=== PATIENT | male | born 1950 | race Caucasian/White ===

== ENCOUNTER 2021-01-19 15:46 | Emergency (ER) | payer MEDICARE | END 2021-01-19 17:10 | disposition home or self-care (01) | LOC: ER1 15:46 | DX: M54.41 Lumbago with sciatica, right side (principal); M54.42 Lumbago with sciatica, left side; M54.16 Radiculopathy, lumbar region; F17.210 Nicotine dependence, cigarettes, uncomplicated | CPT/HCPCS: 99283; J1885; J2360 ==

== ENCOUNTER → 2021-03-27 | Outpatient (CLI) | payer MEDICARE | LOC: RAD 10:27 | DX: M54.5 Low back pain (principal); M51.36 Other intervertebral disc degeneration, lumbar region; M41.9 Scoliosis, unspecified; M43.16 Spondylolisthesis, lumbar region; M48.061 Spinal stenosis, lumbar region without neurogenic claudication | CPT/HCPCS: 72110 ==

== ENCOUNTER 2021-06-16 16:39 | Emergency (ER) | payer MEDICARE ==
[2021-06-16 18:21] LABS: HEMOGLOBIN 14.1 gm/dl (14.0-17.5); RED BLOOD COUNT 4.56 M/UL (4.20-5.50); WHITE BLOOD COUNT 8.6 K/UL (4.5-11.0)
[2021-06-16] MEDS ORDERED: ASPIR-TRIN325 MG PO (21:32)
== END 2021-06-16 22:00 | disposition home or self-care (01) ==
LOC: ER1 16:39
PROVIDERS: Physician Assistant
DX: I73.9 Peripheral vascular disease, unspecified (principal); N18.9 Chronic kidney disease, unspecified; F17.210 Nicotine dependence, cigarettes, uncomplicated; Z79.82 Long term (current) use of aspirin; Z79.899 Other long term (current) drug therapy
CPT/HCPCS: 70450; 72125; 75635; 80053; 81001; 82550; 82553; 83874; 84484; 85025; 99284; Q9967

== ENCOUNTER 2021-09-23 11:15 | Emergency (ER) | payer MEDICARE | END 2021-09-23 12:05 | disposition home or self-care (01) | LOC: ER1 11:15 | DX: I10 Essential (primary) hypertension (principal); F17.200 Nicotine dependence, unspecified, uncomplicated | CPT/HCPCS: 99283 ==

== ENCOUNTER → 2021-09-23 | Outpatient (CLI) | payer MEDICARE ==
[~2021-09-23] MED LIST: ASPIR-TRIN325 MG PO
[2021-09-23 12:55] LABS: RED BLOOD COUNT 4.52 M/UL (4.20-5.50); WHITE BLOOD COUNT 8.5 K/UL (4.5-11.0)
== END ==
LOC: LAB 12:12
PROVIDERS: Family Medicine
DX: I10 Essential (primary) hypertension (principal)
CPT/HCPCS: 36415; 80053; 80061; 84443; 85027

== ENCOUNTER 2021-10-22 15:56 | Emergency (ER) | payer MEDICARE ==
[~2021-10-22] VITALS: Ht 170.2 cm; Wt 68.0 kg
[2021-10-22 16:31] LABS: HEMOGLOBIN 13.7 gm/dl (14.0-17.5); RED BLOOD COUNT 4.48 M/UL (4.20-5.50); WHITE BLOOD COUNT 13.2 K/UL (4.5-11.0)
[2021-10-23 10:24] LABS: CANDIDA ALBICANS Not Detected (Negative); CANDIDA KRUSEI Not Detected (Negative); CANDIDA TROPICALIS Not Detected (Negative); ESCHERICHIA COLI Not Detected (Negative); HAEMOPHILUS INFLUENZAE Not Detected (Negative); KLEBSIELLA OXYTOCA Not Detected (Negative); KLEBSIELLA PNEUMONIAE Not Detected (Negative); KPC-CARBAPENEM-RESISTANCE GENE Not Detected (Negative); PROTEUS Not Detected (Negative); PSEUDOMONAS AERUGINOSA Not Detected (Negative); SERRATIA MARCESANS Not Detected (Negative); STAPHYLOCOCCUS AUREUS Not Detected (Negative); STREP AGALACTIAE (GROUP B) Not Detected (Negative); STREP PYOGENES (GROUP A) Not Detected (Negative); STREPTOCOCCUS Not Detected (Negative); vanA/B (VANCOMYCIN RESIST GENE Not Detected (Negative)
[2021-10-23 11:53] LABS: STAPHYLOCOCCUS DETECTED (Negative)
[2021-10-23] MEDS ORDERED: AMLODIPINE BESY10 MG PO (12:12)
[2021-10-23] MEDS ORDERED: FLOMAX 0.4 MG0.4 MG PO (12:12)
[2021-10-23] MEDS ORDERED: CRESTOR10 MG PO (12:13)
[2021-10-23] MEDS ORDERED: ATENOLOL25 MG PO (12:13)
[2021-10-23] MEDS ORDERED: ASPIRIN EC81 MG PO (12:14)
== END 2021-10-23 00:15 | disposition short-term general hospital (02) ==
LOC: ER1 15:56
PROVIDERS: Nurse Practitioner; Physician Assistant Medical
DX: K57.92 Diverticulitis of intestine, part unspecified, without perforation or abscess without bleeding (principal); D72.829 Elevated white blood cell count, unspecified; Z20.822 Contact with and (suspected) exposure to COVID-19; I12.9 Hypertensive chronic kidney disease with stage 1 through stage 4 chronic kidney disease, or unspecified chronic kidney disease; N18.30 Chronic kidney disease, stage 3 unspecified; E78.5 Hyperlipidemia, unspecified; I73.9 Peripheral vascular disease, unspecified; Z86.73 Personal history of transient ischemic attack (TIA), and cerebral infarction without residual deficits; F17.200 Nicotine dependence, unspecified, uncomplicated; Z79.82 Long term (current) use of aspirin; Z86.59 Personal history of other mental and behavioral disorders
CPT/HCPCS: 0240U; 36600; 70450; 71045; 80053; 81001; 82140; 82550; 82553; 82803; 83605; 84484; 85025; 87040; 87077; 87086; 87150; 93005; 96374; 96375; 97162; 97165; 97530; 99285; J2405; J2543; J2550; J3370; J7070; Q9967

== ENCOUNTER → 2022-01-13 | Outpatient (CLI) | payer MEDICARE ==
[~2022-01-13] MED LIST changes: +AMLODIPINE BESY10 MG PO; +ASPIRIN EC81 MG PO; +ATENOLOL25 MG PO; +CRESTOR10 MG PO; +FLOMAX 0.4 MG0.4 MG PO
[2022-01-13 13:53] LABS: HEMOGLOBIN 13.8 gm/dl (14.0-17.5); RED BLOOD COUNT 4.51 M/UL (4.20-5.50); WHITE BLOOD COUNT 11.7 K/UL (4.5-11.0)
== END ==
LOC: LAB 13:26
PROVIDERS: Family Medicine
DX: I10 Essential (primary) hypertension (principal); E78.5 Hyperlipidemia, unspecified; Z79.899 Other long term (current) drug therapy
CPT/HCPCS: 80053; 80061; 82607; 83735; 85027

== ENCOUNTER → 2022-03-17 | Outpatient (CLI) | payer MEDICARE | LOC: EXRD 11:20 | DX: N18.32 Chronic kidney disease, stage 3b (principal); N28.1 Cyst of kidney, acquired | CPT/HCPCS: 76775 ==